=== PATIENT | male | born 1980 | race Caucasian/White ===

== ENCOUNTER 2019-08-11 14:29 | Emergency (ER) | payer MEDICAID ==
[~2019-08-11] VITALS: Ht 193 cm; Wt 81.8 kg
[2019-08-11] MEDS ORDERED: ketorolac trometh inj. 60 MG/2 ML VIAL IM ONE (15:15)
[2019-08-11] MEDS ORDERED: NAPR-56 PO (15:29)
[2019-08-11] MEDS ORDERED: HYDR-4383 PO (15:29)
[2019-08-11] MEDS ORDERED: HYDROcodone/acetaminophen 10/325mg tab PO ONE (16:30)
[2019-08-11 16:41] VITALS: BP 171/72
== END 2019-08-11 16:58 | disposition home or self-care (01) ==
LOC: ER 14:32
DX: S39.011A Strain of muscle, fascia and tendon of abdomen, initial encounter (principal); Z79.899 Other long term (current) drug therapy; X50.1XXA Overexertion from prolonged static or awkward postures, initial encounter; Y93.89 Activity, other specified; Y92.89 Other specified places as the place of occurrence of the external cause; Y99.8 Other external cause status
CPT/HCPCS: 96372; 99284; J1885